=== PATIENT | female | born 1960 | race Caucasian/White ===

== ENCOUNTER 2020-10-25 12:49 | Inpatient (IN) | payer BC, MEDICARE ==
[2020-10-25] VITALS (10 sets, daily range): BP systolic 99–149; BP diastolic 59–75
[~2020-10-25] VITALS: Ht 162.6 cm; Wt 85.0 kg
[2020-10-25 13:52] LABS: BASOPHILS # (AUTO) 0.1 X10'3 (0-0.2); BASOPHILS % (AUTO) 0.8 % (0-1); EOSINOPHILS # (AUTO) 0.1 X10'3 (0-0.9); EOSINOPHILS % (AUTO) 0.8 % (0-6); HEMATOCRIT 41.4 % (35.0-45.0); HEMOGLOBIN 13.7 g/dl (12.0-16.0); LYMPHOCYTES # (AUTO) 2.7 X10'3 (1.1-4.8); LYMPHOCYTES % (AUTO) 31.7 % (21-51); MEAN CORPUSCULAR HEMOGLOBIN 28.3 PG (27.0-31.0); MEAN CORPUSCULAR HGB CONC 33.1 g/dL (33.0-36.5); MEAN CORPUSCULAR VOLUME 85.5 FL (78-98); MEAN PLATELET VOLUME 9.3 FL (7.4-10.4); MONOCYTES # (AUTO) 0.6 X10'3 (0-0.9); MONOCYTES % (AUTO) 7.3 % (2-12); NEUTROPHILS # (AUTO) 5.1 X10'3 (1.8-7.7); NEUTROPHILS % (AUTO) 59.4 % (42-75); PLATELET COUNT 304 X10'3 (140-440); RED BLOOD COUNT 4.84 X10'6 (4.20-5.60); RED CELL DISTRIBUTION WIDTH 13.5 % (11.5-14.5); WHITE BLOOD COUNT 8.6 X10'3 (4.5-11.0)
[2020-10-25 14:02] LABS: ALANINE AMINOTRANSFERASE 39 U/L (12-78); ALBUMIN 4.1 G/DL (3.4-5.0); ALBUMIN/GLOBULIN RATIO 1.1 (1.1-1.5); ALKALINE PHOSPHATASE 101 IU/L (46-116); ANION GAP 9 (8-16); ASPARTATE AMINO TRANSFERASE 21 U/L (10-37); BILIRUBIN,TOTAL 0.4 MG/DL (0.1-1.0); BLOOD UREA NITROGEN 14 MG/DL (7-18); BUN/CREATININE RATIO 17.3 (6.6-38.0); CALCIUM 9.4 MG/DL (8.5-10.1); CHLORIDE 103 MMOL/L (99-107); CREATININE 0.81 MG/DL (0.40-0.90); GLUCOSE 137 MG/DL (70-104); SODIUM 141 MMOL/L (135-145); TOTAL CARBON DIOXIDE 29.4 MMOL/L (24-32); TOTAL PROTEIN 7.8 G/DL (6.4-8.2); eGFR 72 ML/MIN
[2020-10-25] MEDS ORDERED: aspirin 325mg tablet PO ONE (14:20)
[2020-10-25] MEDS ORDERED: LORazepam 2 mg/ml vial IV ONE (14:25)
[2020-10-25] MEDS ORDERED: nitroGLYCERIN 0.4mg SUBLingual tab SL PRN (14:30)
[2020-10-25] MEDS ORDERED: normal saline 1000ML IV soln IVB ONE (14:30)
[2020-10-25] MEDS ORDERED: heparin 10,000 units/1 ML INJ IV ONE (14:35)
[2020-10-25] MEDS ORDERED: heparin 25,000 UNIT/250ml bag 250 ML IV SCH (14:35)
[2020-10-25] MEDS ORDERED: heparin 10,000 units/1 ML INJ IV PRN (14:40)
[2020-10-25] MEDS ORDERED: fentaNYL/PF 50MCG/1 ML 2ML syringe ONE (14:45)
[2020-10-25] MEDS ORDERED: tirofiban 5mg in NS 100mL 100 ML IV ONE (14:45)
[2020-10-25] MEDS ORDERED: midazolam 1 mg/ML 2ml injection ONE ×3 (14:45→16:08)
[2020-10-25] MEDS ORDERED: LIDOcaine 1% (10mg/ml)w/preservative injection 20ml MDV ONE (14:46)
[2020-10-25] MEDS ORDERED: iohexol 350 MG/ML 50ML vial IV ONE (14:46)
[2020-10-25] MEDS ORDERED: iohexol 350 MG/1 ML 200ml bottle ONE (14:46)
[2020-10-25 15:04] LABS: PARTIAL THROMBOPLASTIN TIME 28 SECONDS (22-32)
[2020-10-25] MEDS ORDERED: diphenhydrAMINE 50 mg/ml inj ONE (15:21)
[2020-10-25] MEDS ORDERED: nitroGLYCERIN-Tridil 50MG/D5W 250 ML IV ONE (15:24)
[2020-10-25] MEDS ORDERED: heparin 1,000unit/ml 10ml vial 10 ML ONE (15:35)
[2020-10-25] MEDS ORDERED: iohexol 350MG/ML 100ml bottle IV ONE (15:41)
[2020-10-25] MEDS ORDERED: clopidogrel 300mg tablet ONE (16:33)
[2020-10-25] MEDS ORDERED: ipratropium/albuterol 3ml nebule NEB PRN (16:45)
[2020-10-25] MEDS ORDERED: ondansetron/PF 4mg/2ml inj IV PRN (16:45)
[2020-10-25] MEDS ORDERED: morphine 4 MG/ML inj SYRINge IV PRN ×2 (16:45→17:25)
[2020-10-25] MEDS ORDERED: magnesium hydroxide 30ml (MOM) UD suspension PO PRN ×2 (16:45→17:25)
[2020-10-25] MEDS ORDERED: morphine 2 MG/ML inj. syringe IV PRN (16:45)
[2020-10-25] MEDS ORDERED: LIDOcaine 2% 10ml TOPICAL JELLY (Urojet) TP ONE (16:45)
[2020-10-25] MEDS ORDERED: acetaminophen 325mg tablet PO PRN ×4 (16:45→17:25)
[2020-10-25] MEDS ORDERED: ELET40TA10 PO (17:07)
[2020-10-25] MEDS ORDERED: DULO60CA65 PO (17:07)
[2020-10-25] MEDS ORDERED: ACET-1 PO (17:07)
[2020-10-25] MEDS ORDERED: ALPR0.5T9 PO (17:07)
[2020-10-25] MEDS ORDERED: OXAZEpam 15mg capsule PO PRN (17:25)
[2020-10-25] MEDS ORDERED: nitroGLYCERIN-Tridil 50MG/D5W 250 ML IV SCH (17:25)
[2020-10-25] MEDS ORDERED: proCHLORperazine 10 MG/2 ml inj IV PRN (17:25)
[2020-10-25] MEDS ORDERED: cyclobenzaprine 10mg tablet PO PRN (17:25)
[2020-10-25] MEDS ORDERED: aspirin 81mg tab.chew PO ONE (17:30)
--- NOTE | 2020-10-25 17:30 | NUR ---
Rec patient from medical laboratory technical officer at 1700, aggrastat and heparin gtt running as on spreadsheet. bp's stable. right groin with sheath in place and patient counselled mult times on keep leg straight and flat. Slight amount of fresh blood at site, may need leg immobilizer. at bedside. Waiting dose of metoprolol to start
[2020-10-25] MEDS: tirofiban 5mg in NS 100mL 100 ML IV SCH ×3 (17:35→20:04)
[2020-10-25] MEDS: normal saline 1000ml 1,000 ML IV SCH (18:00)
[2020-10-25] MEDS: metoprolol tartrate 12.5mg (1/2 tablet) PO SCH (18:00)
[2020-10-25] MEDS: HYDROcodone/acetaminophen 10/325mg tab PO PRN (20:52)
[2020-10-25] MEDS: docusate sod 100mg capsule PO SCH (20:53)
[2020-10-26] VITALS (16 sets, daily range): BP systolic 85–115; BP diastolic 37–69
[2020-10-26] MEDS: HYDROcodone/acetaminophen 10/325mg tab PO PRN ×4 (00:21→23:01)
[2020-10-26] MEDS: ALPRAZolam 0.5mg tablet PO PRN ×2 (00:24→09:22)
[2020-10-26 06:10] LABS: BASOPHILS % (AUTO) 0.2 % (0-1); EOSINOPHILS % (AUTO) 0 % (0-6); HEMATOCRIT 31.8 % (35.0-45.0); HEMOGLOBIN 10.5 g/dl (12.0-16.0); LYMPHOCYTES # (AUTO) 1.4 X10'3 (1.1-4.8); LYMPHOCYTES % (AUTO) 11.5 % (21-51); MEAN CORPUSCULAR HEMOGLOBIN 28.5 PG (27.0-31.0); MEAN CORPUSCULAR HGB CONC 32.9 g/dL (33.0-36.5); MEAN CORPUSCULAR VOLUME 86.5 FL (78-98); MEAN PLATELET VOLUME 9.2 FL (7.4-10.4); MONOCYTES # (AUTO) 0.8 X10'3 (0-0.9); MONOCYTES % (AUTO) 6.4 % (2-12); NEUTROPHILS # (AUTO) 9.7 X10'3 (1.8-7.7); NEUTROPHILS % (AUTO) 81.9 % (42-75); PLATELET COUNT 267 X10'3 (140-440); RED BLOOD COUNT 3.67 X10'6 (4.20-5.60); RED CELL DISTRIBUTION WIDTH 13.7 % (11.5-14.5); WHITE BLOOD COUNT 11.8 X10'3 (4.5-11.0)
[2020-10-26 06:20] LABS: HEMOGLOBIN A1C 5.7 % (4.5-6.2)
[2020-10-26 06:31] LABS: ALANINE AMINOTRANSFERASE 52 U/L (12-78); ALBUMIN 2.9 G/DL (3.4-5.0); ALBUMIN/GLOBULIN RATIO 0.9 (1.1-1.5); ALKALINE PHOSPHATASE 69 IU/L (46-116); ANION GAP 9 (8-16); ASPARTATE AMINO TRANSFERASE 143 U/L (10-37); BILIRUBIN,TOTAL 0.4 MG/DL (0.1-1.0); BLOOD UREA NITROGEN 17 MG/DL (7-18); BUN/CREATININE RATIO 19.8 (6.6-38.0); CALCIUM 8.3 MG/DL (8.5-10.1); CHLORIDE 106 MMOL/L (99-107); CHOL/HDL RATIO 3.1 (0.00-4.99); CHOLESTEROL 148 MG/DL (0-200); CREATININE 0.86 MG/DL (0.40-0.90); GLUCOSE 123 MG/DL (70-104); HDL CHOLESTEROL 48 MG/DL (35-60); LDL CHOLESTEROL 85 MG/DL (50-100); MAGNESIUM 2.1 MG/DL (1.5-2.4); PHOSPHORUS 5.9 MG/DL (2.3-4.5); POTASSIUM 4.5 MMOL/L (3.5-5.1); SODIUM 144 MMOL/L (135-145); TOTAL CARBON DIOXIDE 28.7 MMOL/L (24-32); TRIGLYCERIDES 109 MG/DL (20-135); eGFR 68 ML/MIN
[2020-10-26] MEDS: lisinopril 2.5mg tablet PO SCH (08:00)
[2020-10-26] MEDS: docusate sod 100mg capsule PO SCH ×2 (09:22→21:20)
[2020-10-26] MEDS: duloxetine 30mg CAPSULE.DR PO SCH (09:22)
[2020-10-26] MEDS: aspirin 81mg tab.chew PO SCH (09:22)
[2020-10-26] MEDS: pantoprazole 40mg Tablet.DR PO SCH (09:23)
[2020-10-26] MEDS: metoprolol tartrate 12.5mg (1/2 tablet) PO SCH ×2 (09:23→21:22)
[2020-10-26] MEDS: clopidogrel 75mg tablet PO SCH (09:23)
[2020-10-26] MEDS: atorvastatin 20mg tablet PO SCH (09:24)
[2020-10-26] MEDS: normal saline 1000ml 1,000 ML IV SCH (13:09)
--- NOTE | 2020-10-26 13:35 | NUR ---
Received report from RODNEY Barrera in ICU. Awaiting patient arrival to room 3018A.
--- NOTE | 2020-10-26 13:59 | NUR ---
Patient arrived to room 3018A via wheelchair from ICU. Patient ambulated from wheelchair to the bathroom and then back to bed. Bed locked and lowered, nonskid socks on, call light in reach, frequent rounding and in no acute distress.
--- NOTE | 2020-10-26 14:19 | NUR ---
Patient transferred to Tele floor with all belongings. Report given to Kacie with questions answered
--- NOTE | 2020-10-26 18:19 | NUR ---
Problems reprioritized. Patient report given, questions answered & plan of care reviewed with RODNEY Farias. Patient stable at transfer of care.
--- NOTE | 2020-10-26 18:33 | NUR ---
Called Dr Acosta to confirm HH diet ok despite NPO orders. He ordered "whatever cardiac diet is".
--- NOTE | 2020-10-26 18:34 | NUR ---
Patient in room PCU 3018. I have received report from Kacie STEVENS and had the opportunity to ask questions and assume patient care.
[2020-10-27 01:12] VITALS: BP 91/49
[2020-10-27 02:00] VITALS: BP 97/51
[2020-10-27] MEDS: normal saline 1000ml 1,000 ML IV SCH ×2 (04:01→19:51)
[2020-10-27] MEDS: HYDROcodone/acetaminophen 10/325mg tab PO PRN ×3 (05:31→19:49)
[2020-10-27 05:58] LABS: BASOPHILS # (AUTO) 0.1 X10'3 (0-0.2); BASOPHILS % (AUTO) 0.5 % (0-1); EOSINOPHILS % (AUTO) 0.4 % (0-6); LYMPHOCYTES # (AUTO) 2.9 X10'3 (1.1-4.8); LYMPHOCYTES % (AUTO) 29.7 % (21-51); MEAN CORPUSCULAR HEMOGLOBIN 28.7 PG (27.0-31.0); MEAN CORPUSCULAR HGB CONC 33.3 g/dL (33.0-36.5); MEAN CORPUSCULAR VOLUME 86.1 FL (78-98); MEAN PLATELET VOLUME 8.9 FL (7.4-10.4); MONOCYTES # (AUTO) 0.6 X10'3 (0-0.9); MONOCYTES % (AUTO) 6.4 % (2-12); NEUTROPHILS # (AUTO) 6.2 X10'3 (1.8-7.7); PLATELET COUNT 205 X10'3 (140-440); RED BLOOD COUNT 2.79 X10'6 (4.20-5.60); RED CELL DISTRIBUTION WIDTH 13.4 % (11.5-14.5); WHITE BLOOD COUNT 9.9 X10'3 (4.5-11.0)
--- NOTE | 2020-10-27 06:03 | NUR ---
Patient with anxiety about recent CO, managing medications and many "what if" questions. She slept well through the night.
--- NOTE | 2020-10-27 06:19 | NUR ---
Patient in room PCU 3018. I have received report from Dinora STEVENS at bedside and had the opportunity to ask questions and assume patient care.
[2020-10-27 06:25] LABS: ALANINE AMINOTRANSFERASE 41 U/L (12-78); ALBUMIN 2.9 G/DL (3.4-5.0); ALKALINE PHOSPHATASE 63 IU/L (46-116); ANION GAP 7 (8-16); ASPARTATE AMINO TRANSFERASE 71 U/L (10-37); BILIRUBIN,TOTAL 0.3 MG/DL (0.1-1.0); BLOOD UREA NITROGEN 14 MG/DL (7-18); BUN/CREATININE RATIO 17.5 (6.6-38.0); CALCIUM 7.9 MG/DL (8.5-10.1); CHLORIDE 106 MMOL/L (99-107); GLUCOSE 88 MG/DL (70-104); MAGNESIUM 1.9 MG/DL (1.5-2.4); PHOSPHORUS 3.3 MG/DL (2.3-4.5); POTASSIUM 3.8 MMOL/L (3.5-5.1); SODIUM 141 MMOL/L (135-145); TOTAL CARBON DIOXIDE 28.3 MMOL/L (24-32); TOTAL PROTEIN 5.7 G/DL (6.4-8.2); eGFR 73 ML/MIN
--- NOTE | 2020-10-27 06:30 | NUR ---
Problems reprioritized. Patient report given, questions answered & plan of care reviewed with Safia STEVENS.
[2020-10-27 07:00] VITALS: BP 107/54
[2020-10-27] MEDS: pantoprazole 40mg Tablet.DR PO SCH (07:36)
[2020-10-27] MEDS: aspirin 81mg tab.chew PO SCH (07:36)
[2020-10-27] MEDS: clopidogrel 75mg tablet PO SCH (07:36)
[2020-10-27] MEDS: atorvastatin 20mg tablet PO SCH (07:36)
[2020-10-27] MEDS: duloxetine 30mg CAPSULE.DR PO SCH (07:37)
[2020-10-27] MEDS: lisinopril 2.5mg tablet PO SCH (07:40)
[2020-10-27] MEDS: docusate sod 100mg capsule PO SCH ×2 (07:41→19:49)
[2020-10-27] MEDS: metoprolol tartrate 12.5mg (1/2 tablet) PO SCH ×2 (07:41→19:50)
[2020-10-27 11:00] VITALS: BP 114/60
[2020-10-27] MEDS: ALPRAZolam 0.25mg tablet PO PRN (11:54)
[2020-10-27 15:00] VITALS: BP 109/56
[2020-10-27 18:00] VITALS: BP 110/47
--- NOTE | 2020-10-27 18:12 | NUR ---
Problems reprioritized. Patient report given, questions answered & plan of care reviewed with Dinora STEVENS at bedside.
[2020-10-28] VITALS (10 sets, daily range): BP systolic 105–167; BP diastolic 41–64
[2020-10-28] MEDS: HYDROcodone/acetaminophen 10/325mg tab PO PRN ×3 (03:25→23:00)
--- NOTE | 2020-10-28 06:10 | NUR ---
Patient in room PCU 3018. I have received report from Dinora STEVENS and had the opportunity to ask questions and assume patient care.
--- NOTE | 2020-10-28 06:10 | NUR ---
Problems reprioritized. Patient report given, questions answered & plan of care reviewed with Safia STEVENS.
[2020-10-28 06:19] LABS: ALANINE AMINOTRANSFERASE 28 U/L (12-78); ALBUMIN 2.6 G/DL (3.4-5.0); ALKALINE PHOSPHATASE 56 IU/L (46-116); ANION GAP 3 (8-16); ASPARTATE AMINO TRANSFERASE 37 U/L (10-37); BILIRUBIN,TOTAL 0.3 MG/DL (0.1-1.0); BLOOD UREA NITROGEN 9 MG/DL (7-18); BUN/CREATININE RATIO 13.4 (6.6-38.0); CALCIUM 7.7 MG/DL (8.5-10.1); CHLORIDE 108 MMOL/L (99-107); CREATININE 0.67 MG/DL (0.40-0.90); GLUCOSE 96 MG/DL (70-104); MAGNESIUM 1.8 MG/DL (1.5-2.4); PHOSPHORUS 3.1 MG/DL (2.3-4.5); POTASSIUM 3.7 MMOL/L (3.5-5.1); SODIUM 142 MMOL/L (135-145); TOTAL CARBON DIOXIDE 31.1 MMOL/L (24-32); TOTAL PROTEIN 5.3 G/DL (6.4-8.2); eGFR 90 ML/MIN
--- NOTE | 2020-10-28 06:19 | NUR ---
Problems reprioritized. Patient report given, questions answered & plan of care reviewed with Safia STEVENS.
[2020-10-28 06:32] LABS: BASOPHILS % (AUTO) 0.6 % (0-1); EOSINOPHILS % (AUTO) 0.6 % (0-6); LYMPHOCYTES # (AUTO) 2.1 X10'3 (1.1-4.8); LYMPHOCYTES % (AUTO) 28.6 % (21-51); MEAN CORPUSCULAR HEMOGLOBIN 28.5 PG (27.0-31.0); MEAN CORPUSCULAR HGB CONC 33.4 g/dL (33.0-36.5); MEAN CORPUSCULAR VOLUME 85.2 FL (78-98); MEAN PLATELET VOLUME 9.5 FL (7.4-10.4); MONOCYTES # (AUTO) 0.5 X10'3 (0-0.9); MONOCYTES % (AUTO) 6.9 % (2-12); NEUTROPHILS # (AUTO) 4.6 X10'3 (1.8-7.7); NEUTROPHILS % (AUTO) 63.3 % (42-75); PLATELET COUNT 190 X10'3 (140-440); RED BLOOD COUNT 2.33 X10'6 (4.20-5.60); RED CELL DISTRIBUTION WIDTH 13.5 % (11.5-14.5); WHITE BLOOD COUNT 7.3 X10'3 (4.5-11.0)
[2020-10-28] MEDS: pantoprazole 40mg Tablet.DR PO SCH (06:44)
[2020-10-28] MEDS: ALPRAZolam 0.25mg tablet PO PRN (06:44)
[2020-10-28 07:01] LABS: HEMOGLOBIN 6.6 g/dl (12.0-16.0)
[2020-10-28 07:02] LABS: HEMATOCRIT 19.8 % (35.0-45.0)
[2020-10-28] MEDS: aspirin 81mg tab.chew PO SCH (07:10)
[2020-10-28] MEDS: clopidogrel 75mg tablet PO SCH (07:10)
[2020-10-28] MEDS: atorvastatin 20mg tablet PO SCH (07:10)
[2020-10-28] MEDS: docusate sod 100mg capsule PO SCH ×2 (07:10→19:51)
[2020-10-28] MEDS: metoprolol tartrate 12.5mg (1/2 tablet) PO SCH ×2 (07:10→19:52)
[2020-10-28] MEDS: duloxetine 30mg CAPSULE.DR PO SCH (07:10)
[2020-10-28] MEDS: lisinopril 2.5mg tablet PO SCH (07:11)
--- NOTE | 2020-10-28 07:27 | NUR ---
paged Nydia regarding critical H&H PAGER ID: [phone] MESSAGE: [facility] 3018A Doreen Diaz critical H&H 6. 19.8. please advise. Safia STEVENS [phone]
--- NOTE | 2020-10-28 08:13 | NUR ---
Paged Dr. Stafford again regarding critical labs PAGER ID: [phone] MESSAGE: [facility] 3018A Doreen Diaz critical labs H&H 6.6 19.8. Please advise. Safia STEVENS [phone]
--- NOTE | 2020-10-28 14:14 | NUR ---
Orders for CT of abdomen to rule out retroperitoneal bleed put in per Dr. Emanuel.
--- NOTE | 2020-10-28 14:15 | NUR ---
Informed patient regarding CT of abdomen to be completed to rule out retroperitoneal bleed. Completed CT contrast form and sent to CT.
[2020-10-28 16:22] LABS: OCCULT BLOOD STOOL NEGATIVE (Neg)
--- NOTE | 2020-10-28 16:24 | NUR ---
patient left PCU with CT staff to have CT of abdomen completed.
--- NOTE | 2020-10-28 16:34 | NUR ---
Patient back from CT
[2020-10-28 16:51] LABS: HEMATOCRIT 24.3 % (35.0-45.0); HEMOGLOBIN 8.2 g/dl (12.0-16.0); MEAN CORPUSCULAR HEMOGLOBIN 28.9 PG (27.0-31.0); MEAN CORPUSCULAR HGB CONC 33.8 g/dL (33.0-36.5); MEAN CORPUSCULAR VOLUME 85.7 FL (78-98); MEAN PLATELET VOLUME 8.9 FL (7.4-10.4); PLATELET COUNT 192 X10'3 (140-440); RED BLOOD COUNT 2.84 X10'6 (4.20-5.60); RED CELL DISTRIBUTION WIDTH 13.2 % (11.5-14.5); WHITE BLOOD COUNT 7.6 X10'3 (4.5-11.0)
--- NOTE | 2020-10-28 18:00 | NUR ---
Problems reprioritized. Patient report given, questions answered & plan of care reviewed with Amelia STEVENS at bedside. Addendum: 10/28/20 at 1824 by Giles Aden RN Rosanna STEVENS at bedside
--- NOTE | 2020-10-28 18:30 | NUR ---
Patient in room PCU 3018. I have received report from MADISON STEVENS and had the opportunity to ask questions and assume patient care.
[2020-10-28] MEDS: normal saline 1000ml 1,000 ML IV SCH (18:51)
--- NOTE | 2020-10-28 22:00 | NUR ---
DR. CALDERA CALLED THAT HE GOT THE CALL FROM RADIOLOGIST OF THE RESULT OF CT SCAN WITH ORDER FOR REPEAT CTA AORTA DISECTION.
[2020-10-28] MEDS ORDERED: iohexol 350MG/ML 100ml bottle IV ONE (22:23)
--- NOTE | 2020-10-28 22:30 | NUR ---
PATIENT WENT FOR CTA IN A WHEELCHAIR WITH STAFF.
[2020-10-28] MEDS: ALPRAZolam 0.5mg tablet PO PRN (23:00)
--- NOTE | 2020-10-28 23:00 | NUR ---
PATIENT BACK TO HER ROOM WITH STAFF AND PLACED COMFORTABLE IN BED.
[2020-10-29 02:15] LABS: BASOPHILS % (AUTO) 0.5 % (0-1); EOSINOPHILS # (AUTO) 0.1 X10'3 (0-0.9); EOSINOPHILS % (AUTO) 1.2 % (0-6); HEMATOCRIT 23.6 % (35.0-45.0); LYMPHOCYTES # (AUTO) 2.2 X10'3 (1.1-4.8); LYMPHOCYTES % (AUTO) 27.9 % (21-51); MEAN CORPUSCULAR HGB CONC 33.8 g/dL (33.0-36.5); MEAN CORPUSCULAR VOLUME 85.8 FL (78-98); MONOCYTES # (AUTO) 0.6 X10'3 (0-0.9); NEUTROPHILS % (AUTO) 63.4 % (42-75); PLATELET COUNT 206 X10'3 (140-440); RED BLOOD COUNT 2.75 X10'6 (4.20-5.60); RED CELL DISTRIBUTION WIDTH 13.3 % (11.5-14.5); WHITE BLOOD COUNT 7.9 X10'3 (4.5-11.0)
--- NOTE | 2020-10-29 02:30 | NUR ---
VERENICE GARY CAME TO THE FLOOR AND INFORMED THAT RADIOLOGIST INFORMED HIM OF CTA REPORT WITH TINY BLEEDING. REPEAT CBC RESULT HGB 8.0 AND HCT 23.6 NO FURTHER ORDERS MADE.
[2020-10-29 03:00] VITALS: BP 142/64
[2020-10-29 06:00] VITALS: BP 113/58
--- NOTE | 2020-10-29 06:30 | NUR ---
Problems reprioritized. Patient report given, questions answered & plan of care reviewed with MADISON STEVENS.
[2020-10-29] MEDS: pantoprazole 40mg Tablet.DR PO SCH ×2 (07:00→17:36)
[2020-10-29] MEDS: docusate sod 100mg capsule PO SCH ×2 (08:15→19:27)
[2020-10-29] MEDS: atorvastatin 20mg tablet PO SCH (08:15)
[2020-10-29] MEDS: metoprolol tartrate 12.5mg (1/2 tablet) PO SCH ×2 (08:16→19:29)
[2020-10-29] MEDS: duloxetine 30mg CAPSULE.DR PO SCH (08:16)
[2020-10-29] MEDS: lisinopril 2.5mg tablet PO SCH (08:16)
[2020-10-29 11:00] VITALS: BP 140/53
[2020-10-29] MEDS: HYDROcodone/acetaminophen 10/325mg tab PO PRN ×2 (11:48→19:30)
[2020-10-29 12:29] LABS: ALANINE AMINOTRANSFERASE 25 U/L (12-78); ALBUMIN 2.9 G/DL (3.4-5.0); ALBUMIN/GLOBULIN RATIO 0.9 (1.1-1.5); ALKALINE PHOSPHATASE 58 IU/L (46-116); ANION GAP 8 (8-16); ASPARTATE AMINO TRANSFERASE 37 U/L (10-37); BILIRUBIN,TOTAL 0.6 MG/DL (0.1-1.0); BLOOD UREA NITROGEN 8 MG/DL (7-18); BUN/CREATININE RATIO 11.6 (6.6-38.0); CALCIUM 8.4 MG/DL (8.5-10.1); CHLORIDE 106 MMOL/L (99-107); CREATININE 0.69 MG/DL (0.40-0.90); GLUCOSE 87 MG/DL (70-104); PHOSPHORUS 3.8 MG/DL (2.3-4.5); POTASSIUM 3.9 MMOL/L (3.5-5.1); SODIUM 144 MMOL/L (135-145); TOTAL CARBON DIOXIDE 30.5 MMOL/L (24-32); eGFR 87 ML/MIN
[2020-10-29 15:00] VITALS: BP_SYST 103; BP_SYST 123; BP_DIAS 60; BP_DIAS 65
[2020-10-29 16:28] LABS: HEMATOCRIT 26.4 % (35.0-45.0); MEAN CORPUSCULAR HEMOGLOBIN 29.3 PG (27.0-31.0); MEAN CORPUSCULAR HGB CONC 34.2 g/dL (33.0-36.5); MEAN CORPUSCULAR VOLUME 85.8 FL (78-98); MEAN PLATELET VOLUME 9.6 FL (7.4-10.4); PLATELET COUNT 243 X10'3 (140-440); RED BLOOD COUNT 3.08 X10'6 (4.20-5.60); RED CELL DISTRIBUTION WIDTH 13.4 % (11.5-14.5); WHITE BLOOD COUNT 8.3 X10'3 (4.5-11.0)
[2020-10-29 18:00] VITALS: BP 145/67
--- NOTE | 2020-10-29 18:01 | NUR ---
Problems reprioritized. Patient report given, questions answered & plan of care reviewed with Karen Jones RN at bedside. Addendum: 10/29/20 at 1806 by Giles Aden RN Karen STEVENS at bedside
[2020-10-29] MEDS: normal saline 1000ml 1,000 ML IV SCH (19:38)
[2020-10-29 22:00] VITALS: BP 110/53
[2020-10-30] VITALS (16 sets, daily range): BP systolic 97–134; BP diastolic 43–66
--- NOTE | 2020-10-30 06:10 | NUR ---
Problems reprioritized. Patient report given, questions answered & plan of care reviewed with RODNEY Maza.
[2020-10-30 06:51] LABS: BASOPHILS % (AUTO) 0.3 % (0-1); EOSINOPHILS # (AUTO) 0.1 X10'3 (0-0.9); EOSINOPHILS % (AUTO) 1.4 % (0-6); HEMATOCRIT 28.1 % (35.0-45.0); HEMOGLOBIN 9.4 g/dl (12.0-16.0); LYMPHOCYTES # (AUTO) 1.7 X10'3 (1.1-4.8); LYMPHOCYTES % (AUTO) 18.8 % (21-51); MEAN CORPUSCULAR HEMOGLOBIN 29.1 PG (27.0-31.0); MEAN CORPUSCULAR HGB CONC 33.5 g/dL (33.0-36.5); MEAN CORPUSCULAR VOLUME 86.9 FL (78-98); MEAN PLATELET VOLUME 9.4 FL (7.4-10.4); MONOCYTES # (AUTO) 0.5 X10'3 (0-0.9); NEUTROPHILS # (AUTO) 6.6 X10'3 (1.8-7.7); NEUTROPHILS % (AUTO) 73.5 % (42-75); PLATELET COUNT 244 X10'3 (140-440); RED BLOOD COUNT 3.23 X10'6 (4.20-5.60); RED CELL DISTRIBUTION WIDTH 13.7 % (11.5-14.5); WHITE BLOOD COUNT 8.9 X10'3 (4.5-11.0)
[2020-10-30 07:14] LABS: ALANINE AMINOTRANSFERASE 29 U/L (12-78); ALBUMIN 3.1 G/DL (3.4-5.0); ALKALINE PHOSPHATASE 71 IU/L (46-116); ANION GAP 8 (8-16); ASPARTATE AMINO TRANSFERASE 30 U/L (10-37); BLOOD UREA NITROGEN 10 MG/DL (7-18); BUN/CREATININE RATIO 14.7 (6.6-38.0); CALCIUM 8.4 MG/DL (8.5-10.1); CHLORIDE 105 MMOL/L (99-107); CREATININE 0.68 MG/DL (0.40-0.90); GLUCOSE 72 MG/DL (70-104); POTASSIUM 3.4 MMOL/L (3.5-5.1); SODIUM 141 MMOL/L (135-145); TOTAL CARBON DIOXIDE 28.2 MMOL/L (24-32); TOTAL PROTEIN 6.3 G/DL (6.4-8.2); eGFR 89 ML/MIN
[2020-10-30] MEDS: ALPRAZolam 0.25mg tablet PO PRN (07:58)
[2020-10-30] MEDS: atorvastatin 20mg tablet PO SCH (07:58)
[2020-10-30] MEDS: docusate sod 100mg capsule PO SCH ×2 (07:58→20:23)
[2020-10-30] MEDS: metoprolol tartrate 12.5mg (1/2 tablet) PO SCH ×2 (07:58→20:23)
[2020-10-30] MEDS: pantoprazole 40mg Tablet.DR PO SCH ×2 (07:58→18:00)
[2020-10-30] MEDS: duloxetine 30mg CAPSULE.DR PO SCH (07:58)
[2020-10-30] MEDS: lisinopril 2.5mg tablet PO SCH (07:59)
[2020-10-30] MEDS: HYDROcodone/acetaminophen 10/325mg tab PO PRN (07:59)
[2020-10-30] MEDS: clopidogrel 75mg tablet PO SCH (11:50)
[2020-10-30] MEDS ORDERED: MIDAZolam 1 MG/ML 5ML VIAL ONE (14:01)
[2020-10-30] MEDS ORDERED: LIDOcaine Viscous 15ml cup ONE (14:01)
[2020-10-30] MEDS ORDERED: fentaNYL/PF 50MCG/1 ML 2ML syringe ONE (14:01)
--- NOTE | 2020-10-30 14:25 | NUR ---
Initial: Pt admit for STEMI. Pt with h/o gastric sleeve and she is not taking PPIs or vitamin supplements as she is supposed to and states that she has been experiencing epigastric pain for the last several months per MD note. D/w RN recommendation for MVI with MD approval. Pt with an active heart healthy diet however documented to be NPO since 10/29 for EGD and per RN pt just left for endoscopy and reports pt is hungry. LBM 10/28, receiving routine bowel care with PRN bowel care available last given 10/28. No nutrition intervention implemented at this time given NPO status. Will continue to follow closely. Recommendations: 1) Advance to regular diet as medically indicated in view of lipid panel WNL 2) Routine MVI with MD approval in view of gastric sleeve hx 3) Routine bowel care 4) Weekly scaled weights Addendum: 10/30/20 at [address] Amended: Links added.
--- NOTE | 2020-10-30 15:00 | NUR ---
Spoke to Dr. Espinoza on the phone re: antiplatelet meds/ blood thinners s/p stent placement. Dr. Espinoza had already put in order and instructed this nurse to give pt Plavix korey.
[2020-10-30] MEDS: sucralfate 1 gm tablet PO SCH (18:00)
[2020-10-30] MEDS: normal saline 1000ml 1,000 ML IV SCH (18:02)
--- NOTE | 2020-10-30 18:59 | NUR ---
Problems reprioritized. Patient report given, questions answered & plan of care reviewed with Pat RN.
[2020-10-31] MEDS: HYDROcodone/acetaminophen 10/325mg tab PO PRN (00:04)
[2020-10-31] MEDS: sucralfate 1 gm tablet PO SCH ×2 (00:04→07:47)
[2020-10-31] MEDS ORDERED: proCHLORperazine 10mg tablet PO PRN (00:30)
[2020-10-31 03:00] VITALS: BP 112/53
[2020-10-31 07:00] VITALS: BP 131/60
[2020-10-31 07:18] LABS: BASOPHILS % (AUTO) 0.5 % (0-1); EOSINOPHILS # (AUTO) 0.1 X10'3 (0-0.9); EOSINOPHILS % (AUTO) 1.2 % (0-6); HEMATOCRIT 26.4 % (35.0-45.0); HEMOGLOBIN 8.9 g/dl (12.0-16.0); LYMPHOCYTES # (AUTO) 1.2 X10'3 (1.1-4.8); LYMPHOCYTES % (AUTO) 17.6 % (21-51); MEAN CORPUSCULAR HGB CONC 33.6 g/dL (33.0-36.5); MEAN CORPUSCULAR VOLUME 86.2 FL (78-98); MONOCYTES # (AUTO) 0.5 X10'3 (0-0.9); MONOCYTES % (AUTO) 6.9 % (2-12); NEUTROPHILS # (AUTO) 4.9 X10'3 (1.8-7.7); NEUTROPHILS % (AUTO) 73.8 % (42-75); PLATELET COUNT 252 X10'3 (140-440); RED BLOOD COUNT 3.06 X10'6 (4.20-5.60); RED CELL DISTRIBUTION WIDTH 13.6 % (11.5-14.5); WHITE BLOOD COUNT 6.6 X10'3 (4.5-11.0)
[2020-10-31 07:39] LABS: ALANINE AMINOTRANSFERASE 26 U/L (12-78); ALBUMIN 2.7 G/DL (3.4-5.0); ALBUMIN/GLOBULIN RATIO 0.9 (1.1-1.5); ALKALINE PHOSPHATASE 61 IU/L (46-116); ANION GAP 11 (8-16); ASPARTATE AMINO TRANSFERASE 24 U/L (10-37); BILIRUBIN,TOTAL 0.9 MG/DL (0.1-1.0); BLOOD UREA NITROGEN 6 MG/DL (7-18); BUN/CREATININE RATIO 9.4 (6.6-38.0); CHLORIDE 106 MMOL/L (99-107); CREATININE 0.64 MG/DL (0.40-0.90); GLUCOSE 84 MG/DL (70-104); POTASSIUM 3.6 MMOL/L (3.5-5.1); SODIUM 143 MMOL/L (135-145); TOTAL CARBON DIOXIDE 26.5 MMOL/L (24-32); TOTAL PROTEIN 5.6 G/DL (6.4-8.2); eGFR > 90 ML/MIN
[2020-10-31 07:47] VITALS: BP_SYST 131
[2020-10-31] MEDS: metoprolol tartrate 12.5mg (1/2 tablet) PO SCH (07:47)
[2020-10-31] MEDS: lisinopril 2.5mg tablet PO SCH (07:47)
[2020-10-31] MEDS: clopidogrel 75mg tablet PO SCH (07:47)
[2020-10-31] MEDS: docusate sod 100mg capsule PO SCH (07:48)
[2020-10-31] MEDS: pantoprazole 40mg Tablet.DR PO SCH (07:48)
[2020-10-31] MEDS: atorvastatin 20mg tablet PO SCH (07:48)
[2020-10-31] MEDS: duloxetine 30mg CAPSULE.DR PO SCH (07:48)
[2020-10-31] MEDS ORDERED: ATOR20TA66 PO (10:05)
[2020-10-31] MEDS ORDERED: SUCR1TAB34 PO (10:05)
[2020-10-31] MEDS ORDERED: LISI2.5T2 PO (10:05)
[2020-10-31] MEDS ORDERED: PANT40TA54 PO (10:05)
[2020-10-31] MEDS ORDERED: CLOP75TA34 PO (10:05)
[2020-10-31] MEDS ORDERED: LOP12.5T PO (10:05)
--- NOTE | 2020-10-31 11:52 | NUR ---
patient stable and comfortable at time of discharge, removed telemetry and patient had no PIV at time of discharge (PIV was removed earlier with cannula intact). All valuable gathered and given to patient and patient family member. New medications sent to patients pharmacy and patient has received notification medications are ready for burr picker. All discharge information and discharge education given and discussed in detail with patient and patient family member. Patient and patient family member were able to verbalize back all discharge information and discharge education. Patient was wheeled to lobby in wheelchair by staff accompanied by family member. Patient left hospital via private care with family member.
== END 2020-10-31 12:00 | disposition home or self-care (01) | DRG 246 ==
LOC: ER 12:51 → CICU 2S 16:44 → PCU 3S 10-26 14:41
PROVIDERS: ADMIT Surgery Surgical Critical Care; ATTEND Surgery Surgical Critical Care
PROC: 4A023N7 Measurement of Cardiac Sampling and Pressure, Left Heart, Percutaneous Approach (ICD-10-PCS; principal; 2020-10-25)
PROC: 027036Z Dilation of Coronary Artery, One Artery with Three Drug-eluting Intraluminal Devices, Percutaneous Approach (ICD-10-PCS; 2020-10-25)
PROC: B2111ZZ Fluoroscopy of Multiple Coronary Arteries using Low Osmolar Contrast (ICD-10-PCS; 2020-10-25)
PROC: B2151ZZ Fluoroscopy of Left Heart using Low Osmolar Contrast (ICD-10-PCS; 2020-10-25)
PROC: B3121ZZ Fluoroscopy of Left Subclavian Artery using Low Osmolar Contrast (ICD-10-PCS; 2020-10-25)
PROC: B31N1ZZ Fluoroscopy of Other Upper Arteries using Low Osmolar Contrast (ICD-10-PCS; 2020-10-25)
PROC: B41F1ZZ Fluoroscopy of Right Lower Extremity Arteries using Low Osmolar Contrast (ICD-10-PCS; 2020-10-25)
PROC: 30233N1 Transfusion of Nonautologous Red Blood Cells into Peripheral Vein, Percutaneous Approach (ICD-10-PCS; 2020-10-28)
PROC: B32T1ZZ Computerized Tomography (CT Scan) of Left Pulmonary Artery using Low Osmolar Contrast (ICD-10-PCS; 2020-10-28)
PROC: B3201ZZ Computerized Tomography (CT Scan) of Thoracic Aorta using Low Osmolar Contrast (ICD-10-PCS; 2020-10-28)
PROC: B32S1ZZ Computerized Tomography (CT Scan) of Right Pulmonary Artery using Low Osmolar Contrast (ICD-10-PCS; 2020-10-28)
PROC: B4201ZZ Computerized Tomography (CT Scan) of Abdominal Aorta using Low Osmolar Contrast (ICD-10-PCS; 2020-10-28)
PROC: B4241ZZ Computerized Tomography (CT Scan) of Superior Mesenteric Artery using Low Osmolar Contrast (ICD-10-PCS; 2020-10-28)
PROC: B4281ZZ Computerized Tomography (CT Scan) of Bilateral Renal Arteries using Low Osmolar Contrast (ICD-10-PCS; 2020-10-28)
PROC: B42C1ZZ Computerized Tomography (CT Scan) of Pelvic Arteries using Low Osmolar Contrast (ICD-10-PCS; 2020-10-28)
PROC: B42H1ZZ Computerized Tomography (CT Scan) of Bilateral Lower Extremity Arteries using Low Osmolar Contrast (ICD-10-PCS; 2020-10-28)
PROC: B4211ZZ Computerized Tomography (CT Scan) of Celiac Artery using Low Osmolar Contrast (ICD-10-PCS; 2020-10-28)
PROC: 0DB68ZX Excision of Stomach, Via Natural or Artificial Opening Endoscopic, Diagnostic (ICD-10-PCS; 2020-10-30)
DX: I21.02 ST elevation (STEMI) myocardial infarction involving left anterior descending coronary artery (principal); I25.42 Coronary artery dissection; D62 Acute posthemorrhagic anemia; E78.5 Hyperlipidemia, unspecified; F32.9 Major depressive disorder, single episode, unspecified; F41.0 Panic disorder [episodic paroxysmal anxiety]; F41.1 Generalized anxiety disorder; G89.4 Chronic pain syndrome; M54.9 Dorsalgia, unspecified; R58 Hemorrhage, not elsewhere classified; I25.10 Atherosclerotic heart disease of native coronary artery without angina pectoris; K29.00 Acute gastritis without bleeding; Z20.822 Contact with and (suspected) exposure to COVID-19; K44.9 Diaphragmatic hernia without obstruction or gangrene; Z79.02 Long term (current) use of antithrombotics/antiplatelets; Z79.82 Long term (current) use of aspirin; Z90.710 Acquired absence of both cervix and uterus; Z98.84 Bariatric surgery status; Z90.49 Acquired absence of other specified parts of digestive tract; Z79.899 Other long term (current) drug therapy
CPT/HCPCS: 43239; 93459; 96365; 96368; 96375; 99285; C9606; 36415; 36430; 71045; 71275; 74150; 74174; 80053; 80061; 80069; 82272; 83036; 83735; 83880; 84100; 84484; 85025; 85027; 85610; 85730; 86885; 86900; 86901; 86920; 87081; 87635; 93005; 93926; 94760; 97116; 97161; 97530; 99152; 99153; A4620; A6258; C1725; C1751; C1769; C1874; C9803; G0378; J1200; J1644; J2001; J2060; J2250; J3010; J3246; J3490; J7030; J7040; P9016; Q9967